=== PATIENT | male | born 1935 | race Caucasian/White ===

== ENCOUNTER 2016-12-03 21:49 | Emergency (ER) | payer OTHER ==
[~2016-12-03] VITALS: Ht 177.8 cm; Wt 74.8 kg
[~2016-12-03 21:49] MED LIST: AMAN PO; BENA1TAB21 PO; CARB25TA3 PO; DOXA1TAB42 PO; OXYB5TAB62 PO; VORT1TAB PO
[2016-12-04 04:47] VITALS: BP 120/76
== END 2016-12-04 05:25 | disposition home or self-care (01) ==
LOC: EDBD 21:49 → ER 21:56
DX: R27.0 Ataxia, unspecified (principal); F41.9 Anxiety disorder, unspecified; Z88.8 Allergy status to other drugs, medicaments and biological substances; I10 Essential (primary) hypertension; G20 Parkinson's disease; R63.0 Anorexia